=== PATIENT | female | born 1980 | race African-American/Black ===

== ENCOUNTER 2020-05-24 11:56 | Emergency (ER) | payer MEDICAID, OTHER ==
[2020-05-24 12:04] VITALS: BP 145/87
[2020-05-24] MEDS ORDERED: LIDOCAINE 1% INJ-PF (10 MG/ML) 30 ML SDV INJ ONE (12:16)
[2020-05-24] MEDS ORDERED: ACETAMINOPHEN 325 MG TABLET PO ONE (12:17)
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
== END 2020-05-24 14:08 | disposition home or self-care (01) ==
LOC: ER 11:56
DX: S61.411A Laceration without foreign body of right hand, initial encounter (principal); X99.8XXA Assault by other sharp object, initial encounter; I10 Essential (primary) hypertension
CPT/HCPCS: 99282; 12002; J3490